=== PATIENT | male | born 1965 | race Caucasian/White ===

== ENCOUNTER 2017-08-03 11:50 | Emergency (ER) | payer MEDICAID ==
[2017-08-03 11:55] VITALS: RESP 16
--- NOTE | 2017-08-03 12:07 | EDPHY ---
HPI/HX/ROS/PE/MDM Narrative: CHIEF COMPLAINT: Right hand injury HPI: The patient is a 52 y/o male who complains of right hand pain secondary to crushing it between a box and a shelf at his storage unit one week ago. The swelling has not gone down since he first injured his hand. He also reports he is unable to make a fist with his right hand. He accidently bumped his hand today, which caused moderate pain. Denies numbness, weakness, fever or other pertinent symptoms. REVIEW OF SYSTEMS: Aside from elements discussed in the HPI, a comprehensive 10-point review of systems was reviewed and is negative. PMH: Pancreatic cancer [place] SOCIAL HISTORY: Lives in [place] Works as a riv[employer] Single PHYSICAL EXAM: General:Patient is alert, in no acute distress. ENT:Eyes are normal to inspection. ENT inspection normal. Neck: Normal inspection. Full range of motion. Respiratory:No respiratory distress. Breath sounds normal bilaterally. Cardiovascular: Regular rate and rhythm. Strong peripheral pulses. Normal cap refill. Abdomen:The abdomen is nontender to palpation. There are no peritoneal signs. There are normal bowel sounds. Back: Normal to inspection. No tenderness to palpation. Skin: Normal color. No rash. Warm and dry. Extremities: Tenderness and deformity to 5th metacarpal. Capillary refill normal. Otherwise normal appearance. Full range of motion. Neuro: Oriented x3. Normal motor function. Normal sensory function. Portions of this note were transcribed by an ED scribe. I personally performed the history, physical exam, and medical decision making; and confirm the accuracy of the information in the transcribed note. ED Course: The patient is a 52 y/o male who presents with tenderness and deformity to his 5th metacarpal secondary to crushing it 1 week ago. 1250: The patient has a 5th metacarpal fracture. Procedure: Reduction of 5th Metacarpal Displaced Fracture Time-out completed immediately before the procedure. Neurovascular exam intact pre-procedure. Given hematoma block for pain under ultrasound guidance. The right 5th metacarpal was reduced using [traction][dorsal pressure].Reassessed post-procedure. Neurovascular status intact-Normal Motor and sensory exam. Exam indicated reduction. Splint applied by [myself/tech]. The procedure was performed by myself, Dr. Fritz Return precautions discussed with patient; he is comfortable with this plan. - Data Points Imaging: Discussed imaging studies w/ portfolio administrator Radiologist, I viewed and interpreted images myself General Time Seen by Provider: 08/03/17 12:05 Initial Vital Signs: Initial Vital Signs Temperature (C) 37 C 08/03/17 11:52 Heart Rate 97 08/03/17 11:52 Respiratory Rate 16 08/03/17 11:52 Blood Pressure 135/85 H 08/03/17 11:52 O2 Sat (%) 94 08/03/17 11:52 O2 Delivery Mode Room Air Allergies/Adverse Reactions: No Known Allergies Allergy (Unverified 03/25/14 10:55) Home Medications: Medication Instructions Recorded Colestipol HCl [Colestid (*)] 1 gm PO BID #28 tab 04/19/15 diphenhydrAMINE [Benadryl 50 MG 25 - 50 mg PO Q6 PRN #0 cap 04/19/15 (*)] oxyCODONE IR [Oxycodone Ir (*)] 5 - 10 mg PO Q3 PRN #0 tab 05/01/15 oxyCODONE/APAP 5/325 [Percocet 5 - 10 mg PO Q4-6PRN PRN #14 tab 08/03/17 5/325] Departure - Departure Disposition: Home, Routine, Self-Care Clinical Impression: Fracture of fifth metacarpal bone of right hand Qualifiers: Encounter type: initial encounter Fracture type: closed Metacarpal location: shaft Fracture alignment: displaced Qualified Code(s): S62.326A - Displaced fracture of shaft of fifth metacarpal bone, right hand, initial encounter for closed fracture Condition: Good Instructions: Boxer Fracture (ED) Additional Instructions: Rest, ice, elevation. Follow up with an orthopedic surgeon within one week. You have been referred to Dr. Lewis Okeefe, orthopedic surgeon, if you do not have one. Return to the emergency department for worsening pain, swelling, numbness, weakness or other concerns. Wear splint at all times until reevaluation. Referrals: Sierra Green PA [Primary Care Provider] - As per Instructions Lewis Okeefe MD [Medical Doctor] - As per Instructions Prescriptions: oxyCODONE/APAP 5/325 [Percocet 5/325] 5 - 10 mg PO Q4-6PRN PRN #14 tab PRN Reason: For Pain Report Scribed for: Damion Fritz Report Scribed by: Kay Kaba Date of Report: 08/03/17 Time of Report: 12:07
[2017-08-03 13:59] VITALS: BP 125/85; PULSE 85; TEMP 98.4; O2SAT 95
== END 2017-08-03 13:59 | disposition home or self-care (01) ==
PROC: 0PSPXZZ Reposition Right Metacarpal, External Approach (ICD-10-PCS; principal; 2017-08-03)
DX: S62.326A Displaced fracture of shaft of fifth metacarpal bone, right hand, initial encounter for closed fracture (principal); W23.1XXA Caught, crushed, jammed, or pinched between stationary objects, initial encounter; Z85.07 Personal history of malignant neoplasm of pancreas

== ENCOUNTER 2017-08-08 08:25 | Emergency (ER) | payer MEDICAID ==
[2017-08-08 08:32] VITALS: BP 115/73; PULSE 68; RESP 16; TEMP 97.3; O2SAT 98
--- NOTE | 2017-08-08 09:07 | EDPHY ---
H & P Stated Complaint: was told to f/u here for recheck R hand fx, no complaints Time Seen by Provider: 08/08/17 09:02 HPI/ROS: CHIEF COMPLAINT: Follow-up HISTORY OF PRESENT ILLNESS: Patient is a 52-year-old man who comes to the emergency department stating that he was told to follow-up here for boxer's fracture. He was seen here on the . He is placed in a ulnar gutter splint. He states that he did not follow up with Orthopedics because he was treated here. He denies any recent trauma. The gauze is loose and some of the packing has been removed. No new pain or injury. REVIEW OF SYSTEMS: Constitutional: denies: chills, fever, recent illness, recent injury EENTM: denies: blurred vision, double vision, nose congestion Respiratory: denies: cough, shortness of breath Cardiac: denies: chest pain, irregular heart rate, lightheadedness, palpitations Gastrointestinal/Abdominal: denies: abdominal pain, diarrhea, nausea, vomiting, blood streaked stools Genitourinary: denies: dysuria, frequency, hematuria, pain Musculoskeletal: See HPI Skin: denies: lesions, rash, jaundice, bruising Neurological: denies: headache, numbness, paresthesia, tingling, dizziness, weakness Hematologic/Lymphatic: denies: blood clots, easy bleeding, easy bruising Immunologic/allergic: denies: HIV/AIDS, transplant EXAM: GENERAL: Well-appearing, well-nourished and in no acute distress. HEAD: Atraumatic, normocephalic. EYES: Pupils equal round and reactive to light, extraocular movements intact, sclera anicteric, conjunctiva are normal. ENT: TMs normal, nares patent, oropharynx clear without exudates. Moist mucous membranes. NECK: Normal range of motion, supple without lymphadenopathy or JVD. LUNGS: Breath sounds clear to auscultation bilaterally and equal. No wheezes rales or rhonchi. HEART: Regular rate and rhythm without murmurs, rubs or gallops. ABDOMEN: Soft, nontender, normoactive bowel sounds. No guarding, no rebound. No masses appreciated. BACK: No CVA tenderness, no spinal tenderness, step-offs or deformities EXTREMITIES: Ulnar gutter splint in place on the right hand, Dago wrap and gauze misplaced. Normal range of motion and sensation. Patient has mild deformity to the hand when removed. No open fracture. NEUROLOGICAL: Cranial nerves II through XII grossly intact. Normal speech, normal gait. 5/5 strength, normal movement in all extremities, normal sensation PSYCH: Normal mood, normal affect. SKIN: Warm, dry, normal turgor, no visible rashes or lesions. Source: Patient Exam Limitations: No limitations - Personal History Current Tetanus/Diphtheria Vaccine: Unsure Current Tetanus Diphtheria and Acellular Pertussis (TDAP): Unsure Tetanus Vaccine Date: 1996 - Medical/Surgical History Hx Asthma: No Hx Chronic Respiratory Disease: No Hx Diabetes: No Hx Cardiac Disease: No Hx Renal Disease: No Hx Cirrhosis: No Hx Alcoholism: No Hx HIV/AIDS: No Hx Splenectomy or Spleen Trauma: No Other PMH: stroke 1999, left orchiectomy 2013 - Family History Significant Family History: No pertinent family hx - Social History Smoking Status: Never smoked Alcohol Use: Sober Drug Use: None Constitutional: Initial Vital Signs Temperature (C) 36.3 C 08/08/17 08:30 Heart Rate 68 08/08/17 08:30 Respiratory Rate 16 08/08/17 08:30 Blood Pressure 115/73 08/08/17 08:30 O2 Sat (%) 98 08/08/17 08:30 O2 Delivery Mode Room Air Allergies/Adverse Reactions: No Known Allergies Allergy (Unverified 03/25/14 10:55) Home Medications: Medication Instructions Recorded Colestipol HCl [Colestid (*)] 1 gm PO BID #28 tab 04/19/15 Gabapentin 08/08/17 Trazodone HCl 08/08/17 Medical Decision Making ED Course/Re-evaluation: The patient is splint was removed and gauze and Dago wrap replaced. I instructed the patient to follow up with Orthopedics for more permanent casting and repeat evaluation. Differential Diagnosis: Partial list of the Differential diagnosis considered include but were not limited to; boxer's fracture, follow-up and although unlikely based on the history and physical exam, I also considered infection, ulceration. I discussed these differential diagnoses and the plan with the patient as well as the usual and expected course. The patient understands that the diagnosis is provisional and that in medicine we are not always correct and that further workup is often warranted. Usual and customary warnings were given. All of the patient's questions were answered. The patient was instructed to return to the emergency department should the symptoms at all worsen or return, otherwise to followup with the physician as we discussed. Departure - Departure Disposition: Home, Routine, Self-Care Clinical Impression: Boxers fracture Qualifiers: Encounter type: subsequent encounter Fracture type: closed Fracture healing: with routine healing Qualified Code(s): S62.339D - Displaced fracture of neck of unspecified metacarpal bone, subsequent encounter for fracture with routine healing Condition: Fair Instructions: Boxer Fracture (ED) Referrals: Sierra Green PA [Primary Care Provider] - As per Instructions Ernie Mendez MD [Medical Doctor] - As per Instructions
--- NOTE | 2017-08-08 10:19 | ASMTCMCOM ---
CM Note CM Note Notes: Patient was seen in the ED on 08/03/17 for a right hand injury that required splinting. Per discharge instructions from that visit, patient was instructed to followup with the on-call marine specialist, Dr Lewis Okeefe, within one week. Per patient, he told the ED MD Dr Fritz that he couldn't afford to see a specialist so per patient, Dr Fritz told him to come back to the ED on 08/08/17 to have it rechecked. Patient arrived today and was rechecked and reiterated to followup with an marine specialist. This CM was requested to speak to patient about followup and assist him in getting an appointment. This CM attempted to explain to the patient that we could get him a followup appointment with the on-call marine specialist because per their contract as having provider privileges at [facility] they are required to see patients at least once despite their insurance or ability to pay or not. However, patient interrupted and became quickly agitated, packed up his backpack and left without taking his discharge instructions with him. Date Signed: 08/08/2017 10:18 AM Electronically Signed By:Shonda Cordoba RN
== END 2017-08-08 09:31 | disposition home or self-care (01) ==
DX: S62.339D Displaced fracture of neck of unspecified metacarpal bone, subsequent encounter for fracture with routine healing (principal); X58.XXXD Exposure to other specified factors, subsequent encounter

== ENCOUNTER 2017-08-17 11:14 | Emergency (ER) | payer MEDICAID ==
[2017-08-17 11:20] VITALS: RESP 18; O2SAT 95
--- NOTE | 2017-08-17 12:11 | EDPHY ---
H & P Stated Complaint: Injury to right hand 07/24/17, not getting better. HPI/ROS: CHIEF COMPLAINT: Right hand, follow up HISTORY OF PRESENT ILLNESS: Complains of right hand pain. Initial injury on 03 August and was seen here. Diagnosed with a fracture at the right 5th metacarpal placed in an ulnar gutter splint. Was referred to Dr. Okeefe for definitive care. He reports contacting that physician but allegedly was refused an appointment. He then followed up at [facility]. He reports that they were going to place him in a cast or a definitive orthopedic splint. He returned here on the 08 of August at the instructions that were provided discharge. He reports an argument with the physician and the lead case manager, who was attempting to make an appointment for the patient. He left prior to resolution of the argument. He reports that he feels like he was mistreated during that appointment and went back to be clinic further care. He is now here because of ongoing pain and wanting an x-ray to help them with their definitive care. He has no numbness or tingling. No pain in the wrist. No other associated complaints or modifying factors. Right-hand dominant ESTABLISHED ORTHOPEDIST: None REVIEW OF SYSTEMS: Ten systems reviewed and are negative unless otherwise noted in the HPI PAST MEDICAL HISTORY: Pancreatic cancer, CVA PAST SURGICAL HISTORY: [place] SOCIAL HISTORY: Non occur. Occasional alcohol. Medical marijuana FAMILY HISTORY: Noncontributory EXAMINATION General Appearance: Alert, no distress Cardiovascular: Pulses normal throughout. Symmetric radial pulses 2+ Brisk cap refill Neurological: A&O, sensory symmetric, strength symmetric. No wrist drop Skin: Warm and dry, no rash. No lacerations or punctures Extremities: Tenderness over the right 5th metacarpal. There is slight radial deviation of the affected finger. Neurovascular intact distally. Range of motion the affected finger is intact with flexion with minimal deficit of extension. Psychiatric: Mood and affect normal DIFFERENTIAL DIAGNOSES: Including but not limited to fracture sprain, strain, dislocation, fracture dislocation MDM: 11:45 a.m. Right hand pain with reports of boxer's fracture on the 03 of August. Complicated scenario due to multiple factors. X-ray has been ordered. He is neuro intact but does have slight radial deviation of the finger. 12:00 p.m. After further chart review, it is noted that the lead case manager RN did visit with the patient on his last visit on August 08. She attempted to help him obtain an appointment but he left prior to her been able to do so. He informs me that he left because he felt as though he was mistreated by the staff during that visit. This is not congruent with the documented note by the lead case manager RN. I discussed this with him and he respectfully disagrees. He said that he would apologize to the nurse if she were here at this time, though. 12:08 p.m. X-ray as read by me reveals a partially healed complex fracture with comminution of the shaft of the distal 5th metacarpal. He is neuro intact and I will place him back in an ulnar gutter splint. I offered case management to assist him with an appointment as he reports being refused care in the past. He declined this. He says that he would like to go back to [facility] for them to take care of this. He says that he will call the hand surgeon on-call today. I did recommend that he allow the piano case maker to publisher assistant with this but he has declined. He will be discharged home stable conditions with strict ortho follow-up instructions as he does have deviation of the finger to the radial side. He understands the importance of this. He is to return here or call to discuss with the lead case manager should he have difficulty obtaining appointment. ED Precautions: Worsening pain. Erythema, edema, cyanosis, pallor, paresthesia or anesthesia. Source: Patient, RN/MD, Old records Exam Limitations: No limitations - Personal History Tetanus Vaccine Date: 1996 - Medical/Surgical History Hx Asthma: No Hx Chronic Respiratory Disease: No Hx Diabetes: No Hx Cardiac Disease: No Hx Renal Disease: No Hx Cirrhosis: No Hx Alcoholism: No Hx HIV/AIDS: No Hx Splenectomy or Spleen Trauma: No Other PMH: stroke 1999, left orchiectomy 2013 - Social History Smoking Status: Never smoked Constitutional: Initial Vital Signs Temperature (C) 98.4 F 08/17/17 11:17 Heart Rate 79 08/17/17 11:17 Respiratory Rate 18 08/17/17 11:17 Blood Pressure 138/80 H 08/17/17 11:17 O2 Sat (%) 95 08/17/17 11:17 O2 Delivery Mode Room Air Allergies/Adverse Reactions: No Known Allergies Allergy (Unverified 03/25/14 10:55) Home Medications: Medication Instructions Recorded Colestipol HCl [Colestid (*)] 1 gm PO BID #28 tab 04/19/15 Gabapentin 08/08/17 Trazodone HCl 08/08/17 Departure - Departure Disposition: Home, Routine, Self-Care Clinical Impression: Fracture of fifth metacarpal bone of right hand Qualifiers: Encounter type: subsequent encounter Fracture type: closed Metacarpal location : shaft Fracture alignment: displaced Fracture healing: with delayed healing Qualified Code(s): S62.326G - Displaced fracture of shaft of fifth metacarpal bone, right hand, subsequent encounter for fracture with delayed healing Fracture of fifth metacarpal bone with delayed healing Qualifiers: Fracture type: closed Metacarpal location: shaft Fracture alignment: displaced Laterality: right Qualified Code(s): S62.326G - Displaced fracture of shaft of fifth metacarpal bone, right hand, subsequent encounter for fracture with delayed healing Condition: Good Instructions: Hand Fracture (ED) Additional Instructions: 1. Follow up with hand surgeon for definitive care 2. Hand splint as applied here at all times until seen by surgeon 3. Follow up [facility] Referrals: Sierra Green PA [Primary Care Provider] - As per Instructions Cj Perez MD [Medical Doctor] - As per Instructions
[2017-08-17 12:28] VITALS: BP 131/78; PULSE 77; TEMP 98.2
== END 2017-08-17 12:29 | disposition home or self-care (01) ==
DX: S62.326G Displaced fracture of shaft of fifth metacarpal bone, right hand, subsequent encounter for fracture with delayed healing (principal); Z85.07 Personal history of malignant neoplasm of pancreas; Z86.73 Personal history of transient ischemic attack (TIA), and cerebral infarction without residual deficits